=== PATIENT | male | born 1945 | race Caucasian/White ===

== ENCOUNTER 2021-02-15 07:10 | Day surgery (SDC) | payer MEDICARE, OTHER ==
[~2021-02-15] VITALS: Ht 180.3 cm; Wt 74.5 kg
[~2021-02-15 07:10] MED LIST: MULTIVITAMINS1 EAC7 PO
[2021-02-15] MEDS ORDERED: ASPIRIN81 MG PO (07:34)
[2021-02-15] MEDS ORDERED: OCUVITE ADULT1 EAC1 PO (07:34)
--- NOTE | 2021-02-15 08:58 | NUR ---
02/15/21 0858 Maria Teresa Fall 0849-PATIENT ARRIVED TO PACY ON 2L NC RR EVEN. PATIENT DROWSY DENIES PAIN OR NAUSEA. IVF INFUSING. PATIENT LAYING LEFT LATERAL ENCOURAGED TO PASS GAS. ABDOMEN SOFT. 0854-PATIENT VERY DROWSY APNEIC AROUSES TO VERBAL STIMULI AND ENCOURAGED TO TAKE DEEP BREATHES. PATIENT TAKES DEEP BREATHES AND FOLLOWS COMMAND.
--- NOTE | 2021-02-15 17:01 | OR ---
[facility] [address], [place] [address] Signed DATE OF OPERATION: 02/15/2021 SURGEON: Deacon House MD PREOPERATIVE DIAGNOSES: 1. Personal history of colonic polyps in 2010. 2. Diverticulosis. 3. Minimal internal hemorrhoids. POSTOPERATIVE DIAGNOSES: 1. Moderate sigmoid diverticulosis. 2. Minimal to moderate internal hemorrhoids. PROCEDURE: Colonoscopy without biopsy. ESTIMATED BLOOD LOSS: None. INDICATIONS: Tl is a 75-year-old gentleman, asked to see me for followup colonoscopy. He had a negative flexible sigmoidoscopy back in 2000. I performed his colonoscopy in 2010. A small adenomatous polyp was removed. He is known to have diverticulosis along with minimal internal hemorrhoid tissue. I performed his repeat colonoscopy in 2015 and again, he had diverticulosis with minimal internal hemorrhoid tissue. He currently has no lower GI complaints. There is no family history of colon cancer or polyps. He did undergo a radical prostatectomy since I have seen him last. In the office, I gave him a pamphlet on colonoscopy and he recalls the test quite well. He understands there is risk including, but not limited to gas bloating, crampy abdominal pain, bleeding, perforation requiring surgery, and missed diagnosis. He always does well with Versed and fentanyl. He had expressed understanding and wished to proceed. PROCEDURE NOTE: Tl was taken into our endoscopy suite and placed in the left lateral decubitus position. He was given IV sedation with 6 mg of Versed and 125 mcg of fentanyl. A digital rectal exam was performed and this was unremarkable. 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 The adult colonoscope was introduced and advanced all around into the cecum under direct visualization of camera. It took extra sedation abdominal compression and rotating Tl on the table in order to get the scope to advance. His prep was quite excellent. We could easily see the appendiceal orifice and the ileocecal valve. The Electronically Signed By: DEACON HOUSE MD 02/15/21 1701 PATIENT NAME: TL MALHOTRA OPERATIVE REPORT DATE OF : 41 REPORT #: [id number] PHYSICIAN: DEACON HOUSE MD PCP: SALIMA CARMEN MD REPORT IS CONFIDENTIAL AND NOT TO BE RELEASED WITHOUT AUTHORIZATION [facility] [address] [place] [id number] Signed scope was then slowly withdrawn. We took pictures throughout for photodocumentation. The entire colon and rectum were unremarkable for polyps. He does have minimal to moderate sigmoid diverticulosis. He has minimal internal hemorrhoids as well upon retroflexion of the scope. After this, the gas was suctioned out and the colonoscope removed. Tl tolerated the procedure quite well. RECOMMENDATIONS: I will see Tl back in 5 years for a repeat colonoscopy so long as his health holds up. Deacon House MD ALB/MODL /[id number] cc: MD Salima Sinclair MD Copies: DEACON HOUSE MD, RUSSELL BARR MD ~ Electronically Signed By: DEACON HOUSE MD 02/15/21 1701 PATIENT NAME: TL MALHOTRA OPERATIVE REPORT DATE OF : 41 REPORT #: [id number] PHYSICIAN: DEACON HOUSE MD PCP: SALIMA CARMEN MD REPORT IS CONFIDENTIAL AND NOT TO BE RELEASED WITHOUT AUTHORIZATION
== END 2021-02-15 09:35 | disposition home or self-care (01) ==
LOC: OPS 07:10 → DS 07:10 → OPS 08:15 → DS 09:45 → OPS 10:15
PROVIDERS: ATTEND Colon & Rectal Surgery
PROC: 0DJD8ZZ Inspection of Lower Intestinal Tract, Via Natural or Artificial Opening Endoscopic (ICD-10-PCS; principal; 2021-02-15 08:15)
DX: K64.8 Other hemorrhoids (principal); K57.30 Diverticulosis of large intestine without perforation or abscess without bleeding; Z87.891 Personal history of nicotine dependence; Z88.8 Allergy status to other drugs, medicaments and biological substances; Z86.010 Personal history of colon polyps
CPT/HCPCS: 99153; G0500; J2250; J3010; J7121